=== PATIENT | female | born 1930 | race Caucasian/White ===

== ENCOUNTER 2016-11-16 22:13 | Inpatient (IN) | payer OTHER ==
--- NOTE | ~2016-11-16 | DS ---
Discharge Summary [facility] [address] [place]. [address] NAME: MOHINI CALDERON : 32 STATUS : DIS IN PAT#: [id number] AGE: 86 ADM/REG DATE : 11/16/16 MR#: [id number] REPORT SERV DATE: 12/01/16 DICTATED BY: JONY VELASCO DATE: 11/30/16 REPORT STATUS : Draft TRANSCRIBED BY: MODRussell DATE: 11/30/16 Data Collection from hospitalization DISCHARGE DIAGNOSES: 1. Hyponatremia-probably secondary to gastrointestinal loss and MiraLAX. 2. Obstipation/constipation. 3. Hypertension. 4. 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 5. Multifactorial generalized weakness. CONSULTATIONS: None. PROCEDURES PERFORMED: None. DISCHARGE MEDICATIONS: Aspirin 81 mg every morning; Dulcolax 10 mg per rectum daily as needed; Dulcolax as instructed; vitamin D3 1000 units every morning; vitamin B12 1000 mcg IM/subcutaneously every 30 days; Colace 100 mg as instructed; ferrous sulfate 325 mg on Mondays, Tuesdays, Wednesdays, , and Fridays as instructed; Synthroid 88 mcg every morning; Prilosec 40 mg at bedtime; Ditropan 5 mg twice a day, Metamucil one packet twice a day, magnesium citrate as instructed. CONDITION AT DISCHARGE: Stable. DISPOSITION: The patient was discharged home on a regular diet with activities as instructed. She would follow up with me in 7-14 days following discharge. HOSPITAL COURSE: This is an 86-year-old female, who was brought to the emergency room apparently due to generalized weakness. Her family was not available. She suggested that she was feeling rotten all over and was too weak to do anything and was not able to get around in her residence due to weakness. She had been having problems with significant constipation. She was found not to have any impaction and was placed on MiraLAX six times a day in six ounces of water. She was instructed to take magnesium citrate, Fleet Enema, and Dulcolax suppositories as needed in addition to her regular fiber supplement. She did have some mild nausea with poor oral intake, but otherwise was not drinking significant excessive amounts of fluid. She described small loose liquid stool output up to five or six times on a day. She presented to the emergency room without passage of solid stool. She was admitted to the hospital at this time for further evaluation and treatment. Upon admission, she was found to have severe hyponatremia, which was new. Earlier in the week, she had had some heaviness in her chest. Troponin was negative. She had received IV fluids overnight. The following morning, her sodium level had improved to 119. She was going to be kept on fiber and her other home medications. She was going to be placed on a regular diet. On the , she said she was feeling much better. She had no nausea or vomiting. IV fluids were stopped. We resumed fiber only for her constipation. Sodium level was 123. The next day, she said she felt very weak. She remained afebrile. It was felt that her hyponatremia was probably secondary to GI loss and MiraLAX. Discharge planning was performed. A Dulcolax suppository was given. She was evaluated by Physical Discharge Summary [address] [address] NAME: MOHINI CALDERON : 32 STATUS : DIS IN PAT#: [id number] AGE: 86 ADM/REG DATE : 11/16/16 MR#: [id number] REPORT SERV DATE: 12/01/16 DICTATED BY: JONY VELASCO DATE: 11/30/16 REPORT STATUS : Draft TRANSCRIBED BY: VIPUL DATE: 11/30/16 Therapy. On 11/20/2016, she said she was feeling better and stronger. She had not had a bowel movement. Discharge instructions were given. Due to her improved and stable condition, she was discharged home to be followed by home health care with the above-stated instructions. Information collected by: Elizabeth King I submit the above information as my discharge summary. KRYSTEN/VIPUL Jony Velasco M.D. / [id number] CC: Jony Velasco M.D.
--- NOTE | ~2016-11-16 | HP ---
History And Physical [address] [id number] [facility] [place]. [address] NAME: MOHINI CALDERON : 32 STATUS : ADM Jame PAT#: [id number] AGE: 86 ADM/REG DATE : 11/16/16 MR#: [id number] REPORT SERV DATE: 11/17/16 DICTATED BY: NARA CORONA DATE: 11/17/16 REPORT STATUS : Draft TRANSCRIBED BY: MODRussell DATE: 11/17/16 DATE OF ADMISSION: 11/16/2016 HISTORY OF PRESENT ILLNESS: This is an 86-year-old white female, who was brought to the emergency room apparently due to generalized weakness. She acts as the primary historian presently as family is not available. She just suggests that she was feeling rotten allover, too weak to do anything, and was not able to get around in her residence due to weakness. She has been having problems with significant constipation and had seen her primary physician, Dr. Boyer, earlier this week. She was found not to have any impaction and was placed on MiraLAX six times a day in six ounces of water, instructed to take magnesium citrate, Fleet Enema, and p.r.n. Dulcolax suppositories in addition to her regular fiber supplements. She had some mild nausea with poor intake, but otherwise, was not drinking significant excessive amounts of fluid. She seems to be describing small loose liquid stool output up to five or six times on the day she presented to the emergency room without passage of solid stool. She denied any abdominal pain, persistent vomiting, swelling in her feet or legs, or shortness of breath. Earlier in the week, she had had some heaviness in her chest. She was found to have severe new hyponatremia and is admitted. Chronic health history includes prior hypertension, presently off therapy. She has had a history of syncopal episodes with extensive evaluations without clear-cut etiology. She was on empiric Keppra for a while with untoward side affects. She has had a loop monitor implanted. No history of [place], stroke, or congestive heart failure. She has a hiatal hernia and reflux. She suggests there has been a problem in the past with low sodiums, though this is not documented in the hospital record, and her last office sodium six months ago was normal. She has had previous surgery including bilateral hips, right knee, and appendix surgery. HOME MEDICATIONS: Include aspirin 81 mg daily, iron 325 daily, Synthroid 88 mcg daily, omeprazole 40 mg daily, and Ditropan 5 mg b.i.d. She has also been on Dulcolax suppositories p.r.n., B12 injections, vitamin D, MiraLAX up to 6 a day in water, Metamucil, magnesium citrate, and Fleet Enema. ALLERGIES: SHE CLAIMS NO DRUG ALLERGIES. SOCIAL HISTORY: Nonsmoker no alcohol. She is a , [facility]. Family not available at present. REVIEW OF SYSTEMS: Mostly as above. No falls. No focal weakness. No cough, sputum, or fever. No dysuria. No edema. History And Physical [address] [address] NAME: MOHINI CALDERON : 32 STATUS : ADM Jame PAT#: [id number] AGE: 86 ADM/REG DATE : 11/16/16 MR#: [id number] REPORT SERV DATE: 11/17/16 DICTATED BY: NARA CORONA DATE: 11/17/16 REPORT STATUS : Draft TRANSCRIBED BY: VIPUL DATE: 11/17/16 PHYSICAL EXAMINATION: GENERAL: Frail elderly woman. She is oriented to the hospital, to the month and year, but fairly vague on historical details otherwise. She follows all commands. She is pale and frail. VITAL SIGNS: She has been afebrile. She presented with a blood pressure of 187/77, systolic pressures have improved since. HEENT: Mucous membranes are moist. HEENT is not remarkable. No facial asymmetry. Good hand residential installer bilaterally. She moves lower extremities well. NECK: No JVD. LUNGS: Clear. HEART: Regular without extrasystoles, murmur, or gallop. ABDOMEN: Scaphoid, flat, nontender, and nondistended. RECTAL: I did not do a rectal examination, accomplished by Dr. Boyer earlier in the week. EXTREMITIES: Show no edema. LABORATORY DATA: In the emergency room, sodium was 113, potassium 3.9, BUN 10, creatinine 0.6, and nonfasting blood sugar 136. Hemoglobin 11.8 and hematocrit 33.1. Magnesium 1.7. Troponin negative. IMPRESSION: 1. Hyponatremia, symptomatic, with generalized weakness. I have to assume that this ties into her therapy for constipation. She is not on any real new medications such as diuretics. There is no historical pattern to suggest prior problems with this, and the amount of medication she has been taking is likely causing the drop in her sodium levels. Whether it is due to excess fluid intake or stool loss is not clear. 2. Constipation. Examination was unremarkable as far as abdominal distention. 3. History of hypertension. 4. Mild anemia. 5. Hiatal hernia with a history of reflux. 6. Hypothyroidism. PLAN: She is getting IV fluids overnight, and her sodium has improved to 119 this morning. I am going to continue this program for a gentle replacement. We will check a flat and upright abdomen regarding stool burden. We will keep her on fiber and her other home medications and put her on a regular diet. Further evaluation will depend upon her clinical evolution. JONATHON/VIPUL Nara Corona M.D. / [id number] CC: History And Physical [address] [address] NAME: MOHINI CALDERON : 32 STATUS : ADM Jame PAT#: [id number] AGE: 86 ADM/REG DATE : 11/16/16 MR#: [id number] REPORT SERV DATE: 11/17/16 DICTATED BY: NARA CORONA DATE: 11/17/16 REPORT STATUS : Draft TRANSCRIBED BY: VIPUL DATE: 11/17/16 Tony Boyer M.D.
[2016-11-16 20:44] LABS: BASOPHILS 0.2 %; BASOPHILS ABSOLUTE 0.02 10/3/uL (0.0-0.16); EOSINOPHILS 0.5 %; EOSINOPHILS ABSOLUTE 0.04 10/3/uL (0.0-0.53); HEMATOCRIT 33.1 % (36.0-48.0); HEMOGLOBIN 11.8 g/dL (12.0-16.0); IMMATURE GRANULOCYTES 0.1 %; IMMATURE GRANULOCYTES ABSOLUTE 0.01 10/3/uL (0.0-0.11); LYMPHOCYTES 15.3 %; LYMPHOCYTES ABSOLUTE 1.26 10/3/uL (0.67-4.30); MANUAL DIFF NO %; MEAN CORPUS HGB CONC 35.6 g/dL (32.0-36.0); MEAN CORPUSCULAR HEMOGLOB 29.7 pg (26.0-34.0); MEAN CORPUSCULAR VOLUME 83.4 fL (80-100); MEAN PLATELET VOLUME 8.3 fL (9.2-13.0); MONOCYTES 4.6 %; MONOCYTES ABSOLUTE 0.38 10/3/uL (0.21-1.20); NEUTROPHILS 79.3 %; NEUTROPHILS ABSOLUTE 6.51 10/3/uL (2.02-8.40); PLATELET COUNT 351 10/3/uL (150-400); RBC DISTRIBUTION WIDTH 12.4 % (12.0-16.0); RED CELL COUNT 3.97 10/6/uL (4.0-5.6); WHITE BLOOD CELLS 8.2 10/3/uL (4.5-10.5)
[2016-11-16 20:51] LABS: INTERNATIONAL NORMAL RATI 1.1 UNITS (-); PARTIAL THROMBO TIME 29.6 SEC (22.5-37.2); PROTIME (NOT ORD) 14.1 SEC (12.0-14.5)
[2016-11-16 21:00] LABS: CALCIUM, SERUM 8.3 MG/DL (8.5-10.4); CHEST PAIN PROFILE TAT 0 Hrs 20 Mins; CO2 (CARBON DIOXIDE) 25 MMOL/L (24-34); GFR AFRICAN AMERICAN 96 ML/MIN (>=60); GFR NON AFRICAN AMERICAN 83 ML/MIN (>=60); GLUCOSE, SERUM 136 MG/DL (60-99); POTASSIUM, SERUM 3.9 MMOL/L (3.5-5.3); TROPONIN I <0.02 NG/ML (<0.05)
[2016-11-16 21:01] LABS: BUN (BLOOD UREA NITROGEN) 10 MG/DL (6-23); CHLORIDE, SERUM 77 MMOL/L (96-112); SODIUM, SERUM 113 MMOL/L (135-148)
[2016-11-16 21:54] LABS: ALBUMIN 3.7 G/DL (3.5-5.0); ALKALINE PHOSPHATASE 87 U/L (45-117); SGOT(AST) 27 U/L (5-40); SGPT(ALT) 20 U/L (5-65); TOTAL BILIRUBIN 0.5 MG/DL (0-1.2); TOTAL PROTEIN 7.7 G/DL (6.0-8.5)
[2016-11-16 21:55] LABS: DIRECT BILIRUBIN < 0.1 MG/DL (0.0-0.4); INDIRECT BILIRUBIN(NOT ORDER) 0.4 MG/DL (0.1-0.9)
[~2016-11-16 22:13] MED LIST: ACET500CAP PO; ASAB PO; B121000P IM; CYMBALTA30 PO; DETROLLA4 PO; DITRO5 PO; HALF81 PO; IRON325 MG PO; MAGNESIUM CITRATE PO; METPAKSF PO; MIRALAXPKT PO; MULTIPLE VIT PO; NORV25 PO; NORV5 PO; PCET PO; PRILO PO; PRILOSEC40 MG PO; SYN88 PO; SYSTANE OP; SYSTANE OPH; TYLENOL ARTH650 MG PO; ULTRAM50 PO; VITAMIN B-121000 MC1 SL; VITAMIN D31000 UNIT PO
[2016-11-16] MEDS ORDERED: PRILOSEC40 MG PO (22:21)
[2016-11-16] MEDS ORDERED: FERROUS SULF325 M1 PO (22:21)
[2016-11-16] MEDS ORDERED: DITRO5 PO (22:23)
[2016-11-16] MEDS ORDERED: VITAMIN D31000 UNIT PO (22:24)
[2016-11-16] MEDS ORDERED: B121000P IM/SC (22:24)
[2016-11-16] MEDS ORDERED: SYN88 PO (22:24)
[2016-11-16] MEDS ORDERED: ASAB PO (22:24)
[2016-11-16] MEDS ORDERED: METPAKSF PO (22:25)
[2016-11-16] MEDS ORDERED: MAGNESIUM CITRATE PO (22:30)
[2016-11-16] MEDS ORDERED: BENEFIBER OTC PO (22:32)
[2016-11-16] MEDS ORDERED: MIRALAX POWDER1 PKT PO (22:33)
[2016-11-16] MEDS ORDERED: FLEETS ENEMA PR (22:34)
[2016-11-16] MEDS ORDERED: BISR PR (22:35)
[2016-11-16 22:47] LABS: ASCORBIC ACID (UR NOT ORDER) NEG (NEG); BILIRUBIN, URINE NEGATIVE (NEG); ER URINALYSIS TAT 0 Hrs 12 Mins; KETONE, URINE 20 MG/DL (NEG); LEUKOCYTE ESTERASE(NOT OR MOD (NEG); NITRITE (URINE) NEG (NEG); WBC (NOT ORDERED) (RFLEX) 25 (0-5)
[2016-11-17 05:25] LABS: A/G RATIO 0.8 (0.7-1.9); ALBUMIN 3.2 G/DL (3.5-5.0); ALKALINE PHOSPHATASE 78 U/L (45-117); BUN (BLOOD UREA NITROGEN) 7 MG/DL (6-23); CALCIUM, SERUM 8.2 MG/DL (8.5-10.4); CHLORIDE, SERUM 81 MMOL/L (96-112); CO2 (CARBON DIOXIDE) 26 MMOL/L (24-34); CREATININE 0.56 MG/DL (0.55-1.02); GFR AFRICAN AMERICAN 99 ML/MIN (>=60); GFR NON AFRICAN AMERICAN 85 ML/MIN (>=60); GLOBULIN 3.8 G/DL (2.5-4.1); POTASSIUM, SERUM 3.9 MMOL/L (3.5-5.3); SGOT(AST) 22 U/L (5-40); SGPT(ALT) 15 U/L (5-65)
[2016-11-17 05:26] LABS: GLUCOSE, SERUM 92 MG/DL (60-99); SODIUM, SERUM 119 MMOL/L (135-148)
[2016-11-17 10:13] LABS: FREE T4 1.43 NG/DL (0.76-1.46)
[2016-11-17 10:44] LABS: ULTRASENSITIVE TSH 0.466 MCIU/ML (0.358-3.740)
[2016-11-18 04:54] LABS: BUN (BLOOD UREA NITROGEN) 10 MG/DL (6-23); CALCIUM, SERUM 8.4 MG/DL (8.5-10.4); CHLORIDE, SERUM 92 MMOL/L (96-112); CO2 (CARBON DIOXIDE) 24 MMOL/L (24-34); CREATININE 0.65 MG/DL (0.55-1.02); GFR AFRICAN AMERICAN 94 ML/MIN (>=60); GFR NON AFRICAN AMERICAN 81 ML/MIN (>=60); GLUCOSE, SERUM 71 MG/DL (60-99); POTASSIUM, SERUM 4.5 MMOL/L (3.5-5.3); SODIUM, SERUM 128 MMOL/L (135-148)
[2016-11-19 04:35] LABS: BASOPHILS 0.3 %; BASOPHILS ABSOLUTE 0.02 10/3/uL (0.0-0.16); EOSINOPHILS 4.4 %; EOSINOPHILS ABSOLUTE 0.32 10/3/uL (0.0-0.53); HEMATOCRIT 34.2 % (36.0-48.0); HEMOGLOBIN 11.9 g/dL (12.0-16.0); IMMATURE GRANULOCYTES 0.3 %; IMMATURE GRANULOCYTES ABSOLUTE 0.02 10/3/uL (0.0-0.11); LYMPHOCYTES 28.3 %; LYMPHOCYTES ABSOLUTE 2.08 10/3/uL (0.67-4.30); MEAN CORPUS HGB CONC 34.8 g/dL (32.0-36.0); MEAN CORPUSCULAR HEMOGLOB 29.9 pg (26.0-34.0); MEAN CORPUSCULAR VOLUME 85.9 fL (80-100); MEAN PLATELET VOLUME 8.7 fL (9.2-13.0); MONOCYTES 10.2 %; MONOCYTES ABSOLUTE 0.75 10/3/uL (0.21-1.20); NEUTROPHILS 56.5 %; NEUTROPHILS ABSOLUTE 4.15 10/3/uL (2.02-8.40); PLATELET COUNT 368 10/3/uL (150-400); RBC DISTRIBUTION WIDTH 12.9 % (12.0-16.0); RED CELL COUNT 3.98 10/6/uL (4.0-5.6); WHITE BLOOD CELLS 7.3 10/3/uL (4.5-10.5)
[2016-11-19 04:36] LABS: MANUAL DIFF NO %
[2016-11-19 04:49] LABS: BUN (BLOOD UREA NITROGEN) 12 MG/DL (6-23); CALCIUM, SERUM 8.5 MG/DL (8.5-10.4); CHLORIDE, SERUM 95 MMOL/L (96-112); CO2 (CARBON DIOXIDE) 28 MMOL/L (24-34); CREATININE 0.67 MG/DL (0.55-1.02); FERRITIN 583 NG/ML (8-252); GFR AFRICAN AMERICAN 93 ML/MIN (>=60); GFR NON AFRICAN AMERICAN 80 ML/MIN (>=60); GLUCOSE, SERUM 83 MG/DL (60-99); IRON BINDING CAPACITY 189 MCG/DL (225-410); POTASSIUM, SERUM 3.9 MMOL/L (3.5-5.3); SODIUM, SERUM 131 MMOL/L (135-148)
[2016-11-20 04:19] LABS: A/G RATIO 0.9 (0.7-1.9); ALBUMIN 3.1 G/DL (3.5-5.0); ALKALINE PHOSPHATASE 70 U/L (45-117); BUN (BLOOD UREA NITROGEN) 13 MG/DL (6-23); CALCIUM, SERUM 8.8 MG/DL (8.5-10.4); CHLORIDE, SERUM 94 MMOL/L (96-112); CO2 (CARBON DIOXIDE) 30 MMOL/L (24-34); CREATININE 0.68 MG/DL (0.55-1.02); GFR AFRICAN AMERICAN 92 ML/MIN (>=60); GFR NON AFRICAN AMERICAN 80 ML/MIN (>=60); GLOBULIN 3.5 G/DL (2.5-4.1); GLUCOSE, SERUM 80 MG/DL (60-99); POTASSIUM, SERUM 3.7 MMOL/L (3.5-5.3); SGOT(AST) 15 U/L (5-40); SGPT(ALT) 16 U/L (5-65); SODIUM, SERUM 132 MMOL/L (135-148); TOTAL PROTEIN 6.6 G/DL (6.0-8.5)
[2016-11-20 04:42] LABS: TOTAL BILIRUBIN 0.3 MG/DL (0-1.2)
[2016-11-20] MEDS ORDERED: MAGNESIUM CITRATE (09:37)
[2016-11-20] MEDS ORDERED: DSS (09:38)
[2016-11-20] MEDS ORDERED: BIST (09:39)
== END 2016-11-20 14:37 | disposition home health service (06) | DRG 641 ==
LOC: ER 22:13 → 7NO 23:09
PROVIDERS: Emergency Medicine; Internal Medicine; Nurse Practitioner
DX: E87.1 Hypo-osmolality and hyponatremia (principal); D64.9 Anemia, unspecified; I10 Essential (primary) hypertension; K59.00 Constipation, unspecified; K21.9 Gastro-esophageal reflux disease without esophagitis; K44.9 Diaphragmatic hernia without obstruction or gangrene; E03.9 Hypothyroidism, unspecified; M19.90 Unspecified osteoarthritis, unspecified site; T47.4X5A Adverse effect of other laxatives, initial encounter; Z96.643 Presence of artificial hip joint, bilateral; Z96.651 Presence of right artificial knee joint; Z79.82 Long term (current) use of aspirin
CPT/HCPCS: 71020; 74020; 80048; 80053; 80076; 81001; 82728; 83550; 83690; 83735; 84439; 84443; 84484; 85025; 85610; 85730; 87086; 93005; 97161-GP; 99291; A9270-GY